=== PATIENT | female | born 1990 | race Caucasian/White ===

== ENCOUNTER 2016-11-21 | Outpatient (CLI) | payer OTHER | END 2016-11-21 13:14 | disposition critical access hospital (66) | CPT/HCPCS: A0425; A0429 ==

== ENCOUNTER 2016-11-21 13:30 | Emergency (ER) | payer OTHER ==
[2016-11-21] MEDS ORDERED: CYCLOBENZAPRINE 10 MG TABLET PO STA (14:01)
[2016-11-21] MEDS ORDERED: ACETAMINOPHEN 325 MG TABLET PO STA (14:01)
[2016-11-21] MEDS ORDERED: IBUPROFEN 400 MG TABLET PO STA (14:01)
[2016-11-21] MEDS ORDERED: CYCLOBENZAPRINE 10 MG TABLET PO ONE (14:03)
[2016-11-21] MEDS ORDERED: IBUPROFEN 400 MG TABLET PO ONE (14:04)
[2016-11-21] MEDS ORDERED: ACETAMINOPHEN 325 MG TABLET PO ONE (14:04)
[2016-11-21] MEDS ORDERED: diphenhydrAMINE INJ 50 MG/ML VIAL IM STA (17:12)
[2016-11-21] MEDS ORDERED: KETOROLAC 60 MG/2 ML VIAL IM STA (17:12)
[2016-11-21] MEDS ORDERED: diphenhydrAMINE 25 MG CAPSULE PO STA (17:19)
== END 2016-11-21 17:43 | disposition home or self-care (01) ==
DX: S13.9XXA Sprain of joints and ligaments of unspecified parts of neck, initial encounter (principal); V43.52XA Car driver injured in collision with other type car in traffic accident, initial encounter; Y92.410 Unspecified street and highway as the place of occurrence of the external cause; G43.909 Migraine, unspecified, not intractable, without status migrainosus
CPT/HCPCS: 72050; 81025; 99283; A9270